=== PATIENT | male | born 1945 | race Caucasian/White ===

== ENCOUNTER → 2019-10-24 10:57 | Outpatient (CLI) | payer MEDICARE, SELFPAY ==
--- NOTE | ~2019-10-24 | XR_ITS ---
XR foot RT min 3V DATE: 10/24/2019 11:17 INDICATION: Right foot first metatarsal area pain. No injury. TECHNIQUE: 4 views COMPARISON: None FINDINGS: There is joint space narrowing and prominent spurring at the first metatarsophalangeal join t consistent with osteoarthritis. No fracture, dislocation, periosteal reaction or bone destruction. 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 RAM PLANNER
--- NOTE | ~2019-10-24 | XR_ITS ---
XR foot LT min 3V DATE: 10/24/2019 11:18 INDICATION: Pain at first metatarsal area. No injury. TECHNIQUE: 4 views COMPARISON: None FINDINGS: There is joint space narrowing and minimal spurring at the first metatarsophalangeal joint consistent with osteoarthritis. No fracture or dislocation, periosteal reaction or bone destruction. IMPRESSION: Osteoarthritis at first metatarsophalangeal joint Reviewed, dictated and finalized at location B. WORKER
== END ==
PROVIDERS: PCP Family Medicine; Visit Provider Family Medicine
DX: M19.071 Primary osteoarthritis, right ankle and foot (principal); M19.072 Primary osteoarthritis, left ankle and foot
CPT/HCPCS: 73630

== ENCOUNTER 2019-11-15 13:36 | Outpatient (CLI) | payer MEDICARE, SELFPAY ==
--- NOTE | ~2019-11-15 | MR_ITS ---
EXAMINATION: MR foot LT wo/w con DATE: 11/15/2019 15:04 INDICATION: Tumor at the left first metatarsal. TECHNIQUE: Magnetic resonance imaging (MRI) of the left foot was performed without and with 15 mL Mul tihance intravenous contrast. Sequences included axial T1-weighted FSE, axial T2-weighted FS FSE, cor onal T1-weighted FSE, coronal T2-weighted FS FSE, sagittal T1-weighted FSE and sagittal T2-weighted F S FSE. Precontrast axial T1-weighted FS FSE and post contrast axial and coronal T1-weighted FS FSE we re also obtained. COMPARISON: Left foot radiographs dated 10/24/2019 FINDINGS: 2.8 x 2.7 x 0.6 cm peripherally enhancing T2 hyperintense cystic lesion in the subcutaneous tissues p lantar to the head of the first metatarsal and first metatarsal sesamoids with location and appearanc e most consistent with an adventitial bursa. Differential would include abscess in the appropriate cl inical setting. No evident solid or nodular enhancing component to suggest neoplasm. No other abnorma lly enhancing lesions in the visualized fore and midfoot. Bone alignment is normal. Normal marrow sig nal throughout. Mild osteoarthritis at the first metatarsophalangeal, first interphalangeal and at th e second-fourth tarsal metatarsal joints. Lisfranc ligament and the collateral ligament complex at th e metatarsophalangeal and interphalangeal joints are normal. Visualized portions of the flexor and ex tensor tendons are normal. Nonspecific mild fatty atrophy and increased fluid signal throughout the i ntrinsic musculature of the foot which could be seen with denervation change since in the setting of diabetes or other nonspecific neuropathy or myopathy. IMPRESSION: 1. 2.8 x 2.7 x 0.6 cm cystic lesion within peripheral enhancement plantar to the head of the first me tatarsal and metatarsal sesamoids with location of appearance most consistent with an adventitial bur sa. Reviewed, dictated and finalized at location A. [employer] SPECIALIST IMPRESSION: 1. 2.8 x 2.7 x 0.6 cm cystic lesion within peripheral enhancement plantar to th e head of the first metatarsal and metatarsal sesamoids with location of appear ance most consistent with an adventitial bursa.
[2019-11-15 14:12] LABS: Blood Urea Nitrogen 20 mg/dL (8-26); Estimated Glomerular Filt Rate > 60
== END 2019-11-15 13:37 | disposition home or self-care (01) ==
PROVIDERS: PCP Family Medicine; Visit Provider Podiatrist Foot & Ankle Surgery
DX: M25.872 Other specified joint disorders, left ankle and foot (principal)
CPT/HCPCS: 73720; A9577

== ENCOUNTER 2023-11-23 11:59 | Outpatient (CLI) | payer MEDICARE, SELFPAY ==
--- NOTE | 2023-11-23 12:19 | ECG_ITS ---
Measurements Intervals [place] Rate: 93 P: 65 [place]: 116 QRS: 4 QRSD: 81 T: 17 QT: 342 QTc: 426 Interpretive Statements SINUS RHYTHM WITH MARKED SINUS ARRHYTHMIA WITH SHORT [place] INTERVAL CANNOT RULE OUT SEPTAL INFARCT, AGE INDETERMINATE BORDERLINE T WAVE ABNORMALITY- INFERIOR LEADS ABNORMAL ECG NO PREVIOUS ECG AVAILABLE FOR COMPARISON Electronically Signed On 11-23-2023 12:59:26 [employer]ENT[employer] MANAGEMENT CONSULTANT by Nomi Whitfield D.O.
== END 2023-11-23 12:00 | disposition home or self-care (01) ==
LOC: ANHCARD 12:02
PROVIDERS: PCP Family Medicine; Visit Provider Family Medicine
DX: I49.9 Cardiac arrhythmia, unspecified (principal); R94.31 Abnormal electrocardiogram [ECG] [EKG]
CPT/HCPCS: 93005

== ENCOUNTER 2023-11-23 13:41 | Emergency (ER) | payer MEDICARE, SELFPAY ==
[2023-11-23 14:03] VITALS: BP 156/71; PULSE 66; RESP 16; TEMP 36.5; O2SAT 98
--- NOTE | 2023-11-23 18:20 | ECG_ITS ---
Measurements Intervals [place] Rate: 94 P: 62 ND: 156 QRS: 16 QRSD: 77 T: 27 QT: 331 QTc: 415 Interpretive Statements SINUS RHYTHM FREQUENT VENTRICULAR PREMATURE COMPLEXES NONSPECIFIC T-WAVE ABNORMALITY- INFERIOR LEADS ABNORMAL ECG COMPARED TO ECG 11/23/2023 12:26:24 VENTRICULAR PREMATURE COMPLEXES NOW PRESENT Electronically Signed On 11-23-2023 19:45:38 BIOLOGY DEPARTMENT CHAIR by Nomi Whitfield D.O.
[2023-11-23 18:21] VITALS: BP 153/70; PULSE 104; RESP 17; O2SAT 99
[2023-11-23 19:12] LABS: Partial Thromboplastin Time 37.4 SECONDS (22.3-36.8)
[2023-11-23 19:17] VITALS: BP 132/57; PULSE 84; RESP 16; O2SAT 97
[2023-11-23 19:17] LABS: Alanine Aminotransferase 29 U/L (6-50); Albumin Level 4.5 g/dL (3.5-5.1); Alkaline Phosphatase 78 U/L (38-126); Anion Gap 9 mmol/L (8-16); Aspartate Amino Transferase 36 U/L (17-59); Blood Urea Nitrogen 19 mg/dL (9-20); Calcium 9.6 mg/dL (8.4-10.2); Carbon Dioxide 26 mmol/L (22-30); Chloride 105 mmol/L (98-107); Estimated CRCL calculation 71 ml/min; Estimated Glomerular Filt Rate > 60; Glucose 102 mg/dL (65-110); Magnesium 1.9 mg/dL (1.6-2.3); Potassium 3.8 mmol/L (3.4-5.0); Sodium 140 mmol/L (137-145)
[2023-11-23 19:25] LABS: Basophils Percent Auto 0.5 % (0.2-1.2); Eosinophils Percent Auto 0.1 % (0-4.4); Hematocrit 43.3 % (42.0-52.0); Hemoglobin 14.6 g/dL (14.0-18.0); Immature Granulocyte Absolute 0.03 K/mm3 (0.00-0.031); Immature Granulocyte Percent A 0.3 % (0-0.5); Lymphocytes Absolute Auto 1.87 K/mm3 (0.9-3.2); Lymphocytes Percent Auto 21.5 % (18.3-44.2); Mean Corpuscular HGB Conc 33.7 g/dl (32-36); Mean Corpuscular Hemoglobin 30.7 pg (26-34); Mean Platelet Volume 9.4 fl (7.4-10.4); Monocytes Absolute Auto 0.6 K/mm3 (0.1-0.6); Neutrophils Absolute Auto 6.1 K/mm3 (1.3-6.7); Neutrophils Percent Auto 70.6 % (45.5-73.1); Platelet Count Result 218 k/mm3 (150-375); Red Blood Count 4.76 M/mm3 (4.6-6.20); Red Cell Distribution Width 12.7 % (11.5-14.5); White Blood Count 8.7 K/mm3 (4.5-10.0)
[2023-11-23 19:26] LABS: Troponin I < 0.012 ng/mL (0.000-0.034)
[2023-11-23 19:41] LABS: Appearance Urine Clear (Clear); Bacteria Urine None Seen /hpf; Bilirubin Urine Negative (Negative); Blood Urine 1+ (Negative); Color Urine Yellow (Yellow); Glucose Urine UA Negative (Negative); Ketones Urine 3+ mg/dL (Negative); Leukocyte Esterase Ur Trace LEU/UL (Negative); Nitrate Urine Negative (Negative); Non Pathogenic Casts 0-2; Protein Urine Negative (Negative); Specific Grav Ur 1.023 (1.001-1.035); Squamous Epithelial Cell Urine None seen /hpf (Few); pH Urine 6.5 (5.0-9.0)
[2023-11-23 19:45] LABS: Add Urine Microscopic? YES
[2023-11-23 20:40] LABS: Influenza A QL RT-PCR Negative (Negative); Influenza B QL RT-PCR Negative (Negative); RSV RNA, RT-PCR Negative (Negative); SARS-CoV-2 RNA PCR Negative (Negative)
[2023-11-23 20:51] VITALS: BP 130/71; PULSE 86; RESP 15; O2SAT 95
--- NOTE | 2023-11-23 21:07 | ED.RECABL ---
HPI - Recheck/Abnormal Lab/Rx General Chief Complaint: Recheck/Abnormal Lab/Rx <Millicent Lopez PA-C - Last Filed: 11/23/23 21:21> Stated Complaint: abnormal ekg <Millicent Lopez PA-C - Last Filed: 11/23/23 21:21> Time Seen by Provider: 11/23/23 18:28 <Millicent Lopez PA-C - Last Filed: 11/23/23 21:21> History of Present Illness HPI narrative: 78-year-old male with a history of hypertension presents to the emergency department from PCP office for an abnormal EKG. Patient states he went to his PCP today for a physical exam and was told he had an abnormal EKG and was advised to come to the ER. Patient states this morning when he woke up he had some mild lightheadedness and ?flu-like symptoms?. States the symptoms have since resolved. He does endorse that he has felt intermittent palpitations since he was a child which are unchanged. He denies syncope, chest pain or shortness of breath, fever, cough or congestion. <TEENA Mares Last Filed: 11/23/23 21:21> Related Data Home Medications: Home Medications Medication Instructions Recorded Confirmed meloxicam 15 mg tablet 15 mg PO DAILY PRN pain 10/24/19 11/23/23 fluticasone propionate 50 1 spray intranasal BID 04/24/20 11/23/23 mcg/actuation nasal spray,suspension hydrocortisone 1 % topical cream 1 applic topical BID PRN 12/10/22 11/23/23 (Preparation H Hydrocortisone) loratadine 10 mg tablet (Claritin) 10 mg PO DAILY PRN 05/25/23 11/23/23 <TEENA Mares Last Filed: 11/23/23 21:21> Allergies/Adverse Reactions: Allergies Allergy/AdvReac Type Severity Reaction Status Date / Time No Known Allergies Allergy Unknown Unverified 12/10/22 10:33 <TEENA Mares Last Filed: 11/23/23 21:21> Review of Systems Review of Systems: CONSTITUTIONAL: Denies fever, chills, or sweats. EYES: Denies visual changes, redness, or discharge. ENT: Denies rhinorrhea, congestion, sore throat, or otalgia. CARDIOVASCULAR: See HPI RESPIRATORY: Denies cough or dyspnea. GASTROINTESTINAL: Denies abdominal pain, nausea, vomiting, or diarrhea. GENITOURINARY: Denies dysuria or hematuria. SKIN: Denies rash or itching. MUSCULOSKELETAL: Denies back pain, joint pain, or myalgia. NEUROLOGIC: Denies headache, numbness, or weakness. PSYCHIATRIC: Denies anxiety or depression. <Millicent Lopez PA-C - Last Filed: 11/23/23 21:21> [facility] Past Medical History Medical History: Medical History Arrhythmia (11/23/23) irregularly irregular rhythm Asymmetry of clavicles At low risk for fall Benign positional vertigo BMI 25.0-25.9,adult BMI 26.0-26.9,adult BPH without obstruction/lower urinary tract symptoms PSA 2.5 on 10/27/2021. PSA 2.3 on 10/27/2022. COVID-19 (08/28/21) fully vaccinated [employer] with COVID 08/28/2021 with positive test on Encounter for prostate cancer screening PSA 2.5 on 10/27/2021. PSA 2.3 on 10/27/2022. PSA 2.2 on 11/11/2023. Episodic lightheadedness Extremity cyanosis cyanosis of the great toes. Family history of colon cancer in father normal colonoscopy 06/09/2018 with recheck in 5 years. colonoscopy 07/08/[address] Right ulloa with a 3 mm polyp of the cecum and 5 mm polyp of the descending colon, benign. Foot pain, bilateral Hearing loss bilateral hearing aids Heart murmur Hemorrhoids Male erectile dysfunction, unspecified Overweight (BMI 25.0-29.9) Peripheral neuropathy feet Ureteral stone UTI (urinary tract infection) (~12/09/22) Varicose veins of both lower extremities without ulcer or inflammation <Millicent Lopez PA-C - Last Filed: 11/23/23 21:21> Family History Family History: Family History Mother Family history of coronary artery disease Family history of malignant neoplasm of ovary Patient's mother is , Onset A
[2023-11-23] MEDS: CEFDINIR 300 MG CAPSULE PO (21:41)
== END 2023-11-23 21:50 | disposition home or self-care (01) ==
PROVIDERS: Emergency Provider Physician Assistant; PCP Family Medicine
DX: I49.3 Ventricular premature depolarization (principal); R82.998 Other abnormal findings in urine; R31.9 Hematuria, unspecified; Z20.822 Contact with and (suspected) exposure to COVID-19; I83.93 Asymptomatic varicose veins of bilateral lower extremities; E66.3 Overweight; Z68.25 Body mass index [BMI] 25.0-25.9, adult; G62.9 Polyneuropathy, unspecified; Z87.442 Personal history of urinary calculi; Z87.440 Personal history of urinary (tract) infections; Z86.16 Personal history of COVID-19
CPT/HCPCS: 36415; 80053; 81001; 83735; 84484; 85025; 85610; 85730; 87086; 87637; 93005; 99284; A9270

== ENCOUNTER 2024-05-13 09:26 | Emergency (ER) | payer MEDICARE, SELFPAY ==
--- NOTE | 2024-05-13 09:31 | ED.EAR ---
HPI - Ear Problem General Chief complaint: Ear Stated complaint: RT Ear Pain Time Seen by Provider: 05/13/24 09:31 Source: patient Mode of arrival: ambulatory Limitations: no limitations History of Present Illness HPI Narrative: Juan is a 78-year-old male patient presenting to the clinic today with complaints of right ear pain x2 days. He reports symptoms got worse yesterday and he attempted to call his primary care provider however they were not the office. States no fever or chills. Has increased pain and difficulty hearing in the right ear Related Data Home Medications Medication Instructions Recorded Confirmed meloxicam 15 mg tablet 15 mg PO DAILY PRN pain 10/24/19 05/13/24 loratadine 10 mg tablet (Claritin) 10 mg PO DAILY PRN ALLERGIES 05/25/23 05/13/24 Allergies Allergy/AdvReac Type Severity Reaction Status Date / Time No Known Allergies Allergy Unknown Verified 05/13/24 09:40 Review of Systems Review of Systems: Pertinent positives per HPI. Patient denies any fever, chills, rash, headache, visual changes, dizziness, cough, runny nose, sore throat, shortness of breath, chest pain, palpitations, nausea, vomiting, diarrhea, constipation, abdominal pain, or any urinary issues. [facility] Past Medical History Medical History Arrhythmia (11/23/23) irregularly irregular rhythm Asymmetry of clavicles At low risk for fall Benign positional vertigo BMI 25.0-25.9,adult BMI 26.0-26.9,adult BPH without obstruction/lower urinary tract symptoms PSA 2.5 on 10/27/2021. PSA 2.3 on 10/27/2022. COVID-19 (08/28/21) fully vaccinated [employer] with COVID 08/28/2021 with positive test on Encounter for prostate cancer screening PSA 2.5 on 10/27/2021. PSA 2.3 on 10/27/2022. PSA 2.2 on 11/11/2023. Episodic lightheadedness Extremity cyanosis cyanosis of the great toes. Family history of colon cancer in father normal colonoscopy 06/09/2018 with recheck in 5 years. colonoscopy 07/08/[address] Right ulloa with a 3 mm polyp of the cecum and 5 mm polyp of the descending colon, benign. Foot pain, bilateral Hearing loss bilateral hearing aids Heart murmur Hemorrhoids Male erectile dysfunction, unspecified Overweight (BMI 25.0-29.9) Peripheral neuropathy feet Ureteral stone UTI (urinary tract infection) (~12/09/22) Varicose veins of both lower extremities without ulcer or inflammation Family History Family History Mother Family history of coronary artery disease Family history of malignant neoplasm of ovary Patient's mother is , Onset Age: 81 Family history of malignant neoplasm Father Family history of coronary artery disease Acute myocardial infarction, Onset Age: 67 Family history of malignant neoplasm Grandparent Family history of malignant neoplasm, Onset Age: 93 Other Carcinoma of colon Hypertension Social History Social History Smoking status: Never smoker Alcohol intake: current Alcohol use details: beer rarely Substance use: never Substance use type: does not use Do You Feel Safe in your Home?: Yes Lack of Transportation: No Lack of Food: Never True Current Housing: I Have Housing Concerned About Future Housing: No Difficulty Paying Gas/Electric Bills: No Difficulty Paying for Meds: No Currently Unemployed: No Education: Bachelor's Degree Difficulty w/ Childcare or Family Care: No Comments At the time of my signature, I reviewed and agree with the nursing past medical, surgical, social, and family history. There is no relevant family history pertinent to the patient complaint. Exam Narrative: General: Well-developed, well nourished, in no apparent distress Head: Normocephalic, atraumatic Eyes: Pupils equally round and reactive to lig
[2024-05-13 09:38] VITALS: BP 139/94; PULSE 98; RESP 16; TEMP 36.7; O2SAT 98
[2024-05-13 09:40] VITALS: BP 139/94; PULSE 98; RESP 16; TEMP 36.7; O2SAT 98
== END 2024-05-13 09:58 | disposition home or self-care (01) ==
PROVIDERS: Emergency Provider Nurse Practitioner Family; PCP Family Medicine
DX: H60.311 Diffuse otitis externa, right ear (principal); R01.1 Cardiac murmur, unspecified; G62.9 Polyneuropathy, unspecified; Z86.16 Personal history of COVID-19
CPT/HCPCS: 99213; G0463

== ENCOUNTER 2024-09-15 09:57 | Emergency (ER) | payer MEDICARE, SELFPAY ==
[2024-09-15 10:08] VITALS: BP 189/89; PULSE 103; RESP 16; TEMP 36.9; O2SAT 99
--- NOTE | 2024-09-15 10:12 | ED.GENADULT ---
HPI - General Adult General Chief complaint: Upper Respiratory Infection Stated complaint: Cold Symptoms/Light Headed Time Seen by Provider: 09/15/24 10:14 Source: patient, RN notes reviewed and old records reviewed Mode of arrival: ambulatory Limitations: no limitations History of Present Illness HPI narrative: 78 year old male accompanied by with complaints of sinus congestion and facial pressure since the 16th of this month. Patient reports that he has felt some dizziness and headache for the past 3 days and he checks his blood pressure at home and it has been elevated lately. Patient reports that he has taken some Tylenol for his symptoms and he takes daily allegy pill along with his blood pressure medications. MD complaint: cold symptoms feels light headed and blood pressure elevated Onset (ago): day(s) (day 3) Treatments prior to arrival: other (Tylenol) Related Data Home Medications ?Medication ?Instructions ?Recorded ?Confirmed ?Last Taken ?Type loratadine 10 mg tablet (Claritin) 10 mg PO DAILY PRN ALLERGIES 05/25/23 08/15/24 Unknown History Allergies Allergy/AdvReac Type Severity Reaction Status Date / Time No Known Allergies Allergy Unknown Verified 09/15/24 10:12 Review of Systems Review of Systems: CONSTITUTIONAL: Denies fever, chills, or sweats. EYES: Denies visual changes, redness, or discharge. ENT: Reports rhinorrhea, congestion, no sore throat, or otalgia. CARDIOVASCULAR: Denies chest pain, palpitations, or edema. RESPIRATORY: states mild cough denies dyspnea. GASTROINTESTINAL: Denies abdominal pain, nausea, vomiting, or diarrhea. GENITOURINARY: Denies dysuria or hematuria. SKIN: Denies rash or itching. MUSCULOSKELETAL: Denies back pain, joint pain, or myalgia. NEUROLOGIC: states some headache, intermittent dizziness denies any tingling or any numbness, or weakness. moves all extremities on own power PSYCHIATRIC: Denies anxiety or depression. All systems reviewed & are unremarkable except as noted in HPI and below [facility] Past Medical History Medical History (Updated 09/17/24 @ 12:12 by Idania Nielson NP) Lesion of lip Mixed hyperlipidemia cholesterol 166, triglycerides 91, HDL 43, LDL elevated at 106 11/11/2023. Traumatic ecchymosis of lower leg Otitis media Otitis externa of right ear Extremity cyanosis cyanosis of the great toes. At low risk for fall Peripheral neuropathy feet Arrhythmia (11/23/23) irregularly irregular rhythm Ureteral stone Hemorrhoids BMI 26.0-26.9,adult UTI (urinary tract infection) (~12/09/22) Overweight (BMI 25.0-29.9) Encounter for prostate cancer screening PSA 2.5 on 10/27/2021. PSA 2.3 on 10/27/2022. PSA 2.2 on 11/11/2023. COVID-19 (08/28/21) fully vaccinated [employer] with COVID 08/28/2021 with positive test on Asymmetry of clavicles Varicose veins of both lower extremities without ulcer or inflammation Heart murmur Episodic lightheadedness Benign positional vertigo BMI 25.0-25.9,adult BPH without obstruction/lower urinary tract symptoms PSA 2.5 on 10/27/2021. PSA 2.3 on 10/27/2022. Male erectile dysfunction, unspecified Family history of colon cancer in father normal colonoscopy 06/09/2018 with recheck in 5 years. colonoscopy 07/08/[address] Barnes with a 3 mm polyp of the cecum and 5 mm polyp of the descending colon, benign. Foot pain, bilateral Hearing loss bilateral hearing aids Surgical History Surgical History (Updated 09/17/24 @ 12:01 by Idania Nielson NP) H/O right inguinal hernia repair Family History Family History Mother Family history of coronary artery disease Family history of malignant neoplasm of ovary Patient's mother is , Onset Age: 81 Family history of malignant neoplasm Father Family history of coronary artery disease Acute myocardial infarction, Onset Age: 67 Family history of malignant neoplasm Grandparent Family history of malignant neoplasm, Onset Age: 93 Other Carcinoma of colon Hypertension Social History Social History Smoking status: Never smoker Alcohol intake: current Alcohol use details: beer rarely Substance use: never Substance use type: does not use Do You Feel Safe in your Home?: Yes Lack of Transportation: No Lack of Food: Never True Current Housing: I Have Housing Concerned About Future Housing: No Difficulty Paying Gas/Electric Bills: No Difficulty Paying for Meds: No Currently Unemployed: No Education: Bachelor's Degree Difficulty w/ Childcare or Family Care: No Comments At time of signature, agree with nursing past medical, surgical, social and family history. There is no relevant family history pertinent to the presenting complaint Exam Narrative: GENERAL: Well-appearing, well-nourished, and in no acute distress. HEAD: Normocephalic, atraumatic. EYES: PERRLA and EOMI.no nystagmus ENT: Nares clear, clear rhinorrhea no epistaxis. Mucous membranes moist.TM's normal with dull light reflex, throat with no swelling or acute redness NECK: Supple. no lymphadenopathy CHEST: Clear to auscultation. No respiratory distress occasional dry cough, SAO2 99% on room air. HEART: Regular rate and rhythm. No murmur heard. Normal peripheral pulses. ABDOMEN: Soft, nontender, nondistended, normal active bowel sounds. no nausea,vomiting or diarrhea EXTREMITIES: Normal range of motion. No edema. SKIN: Warm, dry, no rash. NEURO: No focal deficits. Alert and oriented x3.move all extremities on own power, no drift, face symmetrical, gait steady see orthostatics Course Course Emergency Course: Patient is aware of diagnosis, understands and agrees to treatment plan.? Anticipatory guidance given.? Patient agrees to follow-up as directed and is aware of reasons to seek care at the emergency department. Portions of this record may have been created with voice recognition software Level of Care: Express Care Visit Vital Signs Vital signs: Vital Signs Temperature 36.9 C 09/15/24 10:08 Pulse Rate 103 H 09/15/24 10:08 Respiratory Rate 16 09/15/24 10:08 Blood Pressure 189/89 H 09/15/24 10:08 Pulse Oximetry 99 09/15/24 10:08 Temperature 36.9 C 09/15/24 10:08 Pulse Rate 101 H 09/15/24 10:41 Respiratory Rate 16 09/15/24 10:08 Blood Pressure 157/93 H 09/15/24 10:42 Pulse Oximetry 99 09/15/24 10:08 Oxygen Delivery Room Air 09/15/24 10:15 Reviewed Medical Decision Making MDM Narrative Medical decision making narrative: Exam findings and imaging show no acute concerns or changes; patient is non-toxic appearing and is in no distress.? Patient is appropriate for outpatient treatment and follow-up Differential Diagnosis Differential Diagnosis: URI, sinusitis, elevation of blood pressure, dizziness, influenza, COVID Medical Records Medical records reviewed: Yes I reviewed the external patient's medical records. Vital Signs Vital Signs: Vital Signs Temperature 36.9 C 09/15/24 10:08 Pulse Rate 103 H 09/15/24 10:08 Respiratory Rate 16 09/15/24 10:08 Blood Pressure 189/89 H 09/15/24 10:08 Pulse Oximetry 99 09/15/24 10:08 Temperature 36.9 C 09/15/24 10:08 Pulse Rate 101 H 09/15/24 10:41 Respiratory Rate 16 09/15/24 10:08 Blood Pressure 157/93 H 09/15/24 10:42 Pulse Oximetry 99 09/15/24 10:08 Oxygen Delivery Room Air 09/15/24 10:15 reviewed Lab Data Lab results reviewed: Yes I reviewed the patient's lab results. Lab results narrative: COVID antigen negative, Influenza A negative, Influenza B negative Labs: Lab Results 09/15/24 Range/Units 10:47 POC Influenza A Ag Negative (Negative) POC Influenza B Ag Negative (Negative) POC SARS CoV-2 Ag Negative (Negative) Critical Care Time Critical Care Time Critical Care Time: No Discharge Plan Discharge Clinical Impression: Elevated blood pressure reading Sinusitis Qualifiers: Sinusitis location: pansinusitis Chronicity: acute Recurrence: non-recurrent Qualified Code(s): J01.40 - Acute pansinusitis, unspecified Patient Disposition: Home, Self-Care Condition: Stable Instructions: Antibiotic Form, Sinusitis (ED), Hypertension (ED) Additional Instructions: Increase fluids especially juices and water avoid caffeine [id number] cough and cold medicine of your choice for your symptoms Zyrtec Claritin or [place] daily include Coricidin brand decongestant Tylenol or ibuprofen for any fever pain heat to the face 20-30 minutes 4-6 times a day for pain Salt water gargles, throat lozenges or throat sprays as desired Antibiotic as directed--finished the medication continue to monitor your blood pressure at home follow-up with your PCP for further evaluation any continued feelings of dizziness or any changes in your symptoms go directly to the emergency room for further evaluation If your symptoms persist, change or worsen significantly before you can contact your personal physician then please, without delay, go to the emergency department for further evaluation. Follow-up with PCP in 7-10 days or sooner if needed Follow up with PCP soon in regards to your blood pressure which is elevated above threshold for referral. Blood pressure above 120/80 may indicate pre-hypertension. initial 189/89 recheck 157/93 Patient Language: Turkish Prescriptions: New amoxicillin 500 mg capsule 500 mg PO Q8H Qty: 30 0RF No Action loratadine [Claritin] 10 mg tablet 10 mg PO DAILY PRN (Reason: ALLERGIES) telmisartan 40 mg tablet 40 mg PO DAILY Qty: 90 3RF Follow-up/Referrals: PHYSICIAN,REPAIR MANAGER [Primary Care Provider] - Time of Disposition: 11:06 Quality [place] Coma Scale Eyes: Open Verbal: Oriented and Alert Motor: Follows Commands [place] Coma Total Score: 15
[2024-09-15 10:41] VITALS: BP 156/89; BP 178/85; PULSE 101
[2024-09-15 10:42] VITALS: BP 157/93
[2024-09-15 10:49] LABS: EDCOVIDSCREEN Negative (Negative); EDINFLUASCREEN Negative (Negative); EDINFLUBSCREEN Negative (Negative)
== END 2024-09-15 11:21 | disposition home or self-care (01) ==
PROVIDERS: Emergency Provider Registered Nurse
DX: R03.0 Elevated blood-pressure reading, without diagnosis of hypertension (principal); J01.40 Acute pansinusitis, unspecified; E78.2 Mixed hyperlipidemia; Z20.822 Contact with and (suspected) exposure to COVID-19
CPT/HCPCS: 87426; 87804; 99213; G0463